=== PATIENT | male | born 1990 | race Caucasian/White ===

== ENCOUNTER 2021-09-18 10:20 | Outpatient (CLI) | payer OTHER ==
[2021-09-18 10:58] VITALS: BP 130/88
--- NOTE | 2021-09-18 10:58 | SLEEP CARE CONSULTATION ---
Information from patient questionnaire entered by Ann Mosley MA. I have reviewed and concur with the information entered by Ann Mosley MA. This document represents the service I personally performed and the decisions made by , Yancy Lopez ARNP. History of Present Illness Service Date and Time: 09/18/2021 1020 Reason for Visit: New patient (ONSET 12/1990, NO PRIORS,) Chief Complaint: reports: Unrefreshed sleep, Fatigue, Frequent awakenings at nig ht Date of Onset: 20 PLUS YEARS Usual bedtime: 10-11 PM Time it takes to fall asleep: 20 MINUTES Snores at night: No Observed to quit breathing while asleep: No Sleeps alone due to snoring: No Number of times waking at night: 3 - 10 Reasons for waking at night: reports: Bathroom Toss, Turn, or Twitch while sleeping: Yes Recalls having dreams: Yes Usually gets out of bed at: 0900 Feels refreshed in the morning: No (FEELS TIRED ALL DAY LONG, GETS ENERGY AND CLARITY AROUND 1800. ) Morning headache: No Sleepy or fatigued during the day: Yes Ever fallen asleep while driving: No Takes day naps: No Dreams during day naps: Yes Prior sleep studies: No Additional HPI information: I had the pleasure of seeing FOX WARE today regarding the possibility of him having a sleep disorder. His current complaints are fatigue, frequent night awakenings, unrefreshed sleep and nocturia. He states he feels tired all the time during the day from waking up throughout the night. He will wake up with urge to void several times a night. He states his father and uncle both have sleep apnea and are treated. The patient tells me that he normally goes to bed around 10 pm, and it takes him approximately 30 minutes to fall asleep. He has not been told that he snores loudly and irregularly at night. He has not been observed to stop breathing in his sleep. He can recall waking up on the average of 1 to multiple times during the night, he does not keep track. Most of the time he wakes up because of needing bathroom. He has not awakened for his own snoring, choking, and having to gasp for air. There is some tossing and turning in his sleep. Generally he can recall having dreams about 1 time a week. He usually wakes up at 0900 and does not feel refreshed. He usually does not have a morning headache. During the day he complains of feeling sleepy and fatigued. He has never fallen asleep while driving nor has any accident due to sleepiness. He usually does not take naps during the day. There is no somniloquy (sleep talking) or somnambulism (sleep walking). He reports having impaired concentration during the day. - Parasomnia Symptoms Ever been unable to move upon waking from sleep: Yes Walks in sleep: No Talks in sleep: No Ever acted out dreams in sleep: No Ever felt weak in the knees when startled or emotional: No Bothered by creepy, crawly, restless sensations in legs: Yes (when laying down at night) Problems with memory or concentration: No Subjective Initial [place] Sleepiness Scale score: 5 (2021) Past Medical History Past Medical History: reports: Other (nocturia) Social History The patient's occupation is a [employer]. Patient is Single and lives in . Have you smoked in the past 12 months: No Alcohol use: Yes Alcohol amount and frequency: 1-2 X MONTHLY Caffeine use: Yes Caffeine amount and frequency: 1 X BI WEEKLY Family History Family history of sleep disordered breathing: Yes Family Hx Sleep Apnea: Father: Snoring (UNCLE), Sleep apnea - Treated, Grandparent: Snoring, Sleep apnea - Untreated, Other: Snoring, Sleep apnea - Treated Allergies and Home Medications Known drug allergies: No Drug allergies reviewed: Yes (NKDA) Home medication list reviewed: Yes Allergy and home medication list: Myrbetriq for overactive bladder prescribed today, hasn't started yet. Review of Systems Weight loss over past 5 years: 10 LBS Cardiovascular: denies: high blood pressure Gastrointestinal: denies: heartburn Urinary: reports: frequency, other (NOCTURIA) Psychiatric: denies: Attention Deficit Hyperactivity, anxiety, depression, mood disorder Ear/Nose/Throat: reports: nasal congestion, wisdom teeth removed. denies: dry mouth/throat, injury to nose, tonsillectomy Endocrine: reports: increased urination Musculoskeletal: reports: back pain Immunologic: reports: sneezing, allergies to food or environment (allergies in winter, dust mites) Physical Exam Vital signs obtained and entered by: Saúl MOSLEY CMA TIO Blood Pressure: 130/88 (LEFT, PULSE 59, RESP 16,) Heart Rate: 62 O2 Saturation: 99 Height: 5 ft 9 in Weight: 170 lb (CLOTHES) Body Mass Index: 25.1 BMI Classification: Overweight Neck circumference: 14.5 (inches) Mouth and throat: narrow oropharynx Soft palate: long Hard palate: normal Uvula: normal Uvula visualization: 50% Mallampati Class II Tongue: normal in size Tonsils: small Neck: normal w/o lymphadenopathy or thyromegaly Heart: regular rate and rhythm Lungs: clear bilaterally Impression and Plan 1. Suspected Obstructive Sleep Apnea-Hypopnea Syndrome, as suggested by a history of frequent awakening during the night, unrefreshed sleep, cognitive impairment, and excessive daytime sleepiness. Narrow oropharynx and obesity are common predisposing factors for obstructive sleep apnea-hypopnea syndrome. I recommend proceeding to polysomnography to confirm the diagnosis and to assess severity. If the patient has significant sleep disordered breathing, a manual CPAP titration study will also be performed to find the optimal treatment pressure. I informed the patient of what the sleep studies involve and after some discussion, obtained agreement to proceed. The pathophysiology of obstructive sleep apnea-hypopnea syndrome was discussed with the patient and health risks of cardiovascular and cerebrovascular disease if not treated. Risks of drowsy driving discussed in detail and patient advised to avoid long distance driving and to gut puller at the first sign of drowsiness. Patient agreed to plan. * Schedule polysomnography/HST * Avoid long distance driving or driving when feeling sleepy. * Avoid alcohol, sedative and muscle relaxant around bedtime. * Maintain a healthy weight. * Review instructions provided by trained office staff on how to prepare for the sleep study. * Return for follow-up after sleep study completed. Counseling Topics: Weight control Visit Type: In Office Time Spent with Patient (minutes): 30 Provider Statement: I spent 100% of the Face to Face Visit with the patient with greater than 50% spent counseling the patient and coordination of care.
== END 2021-09-18 10:21 | disposition home or self-care (01) ==
LOC: SC 10:20
PROVIDERS: ATTEND Nurse Practitioner Family
DX: G47.8 Other sleep disorders (principal); R53.83 Other fatigue; R35.1 Nocturia; E66.3 Overweight; Z68.25 Body mass index [BMI] 25.0-25.9, adult
CPT/HCPCS: 99203; 99212

== ENCOUNTER 2021-10-01 08:27 | Outpatient (CLI) | payer OTHER | END 2021-10-01 08:28 | disposition home or self-care (01) | LOC: SC 08:27 | PROVIDERS: ATTEND Nurse Practitioner Family | DX: R09.02 Hypoxemia (principal); R53.83 Other fatigue; G47.8 Other sleep disorders; R35.1 Nocturia | CPT/HCPCS: 95806 ==

== ENCOUNTER 2021-10-11 14:05 | Outpatient (CLI) | payer OTHER ==
[2021-10-11 14:31] VITALS: BP 125/83
--- NOTE | 2021-10-11 14:31 | SLEEP CARE CONSULTATION ---
Information from patient questionnaire entered by Ann Mosley MA. I have reviewed and concur with the information entered by Ann Mosley MA. This document represents the service I personally performed and the decisions made by John rai Caren J, ARNP. History of Present Illness Service Date and Time: 10/11/2021 1405 Initial [place] Sleepiness Scale score: 5 (2021) Current [place] Sleepiness Scale score: 5 (09/2021) Additional HPI information: FOX WARE returns for follow up and results of the recently performed home sleep study. The patient was informed of the following findings: No significant sleep disordered breathing with an average AHI of 1.5 and trip oxygen saturation of 86%. I explained the pathophysiology behind obstructive sleep apnea. Patient does not have sleep apnea and was advised how weight gain could increase the risk of developing sleep apnea in the future. Patient has light snoring. Snoring can be reduced by weight loss. Weight loss is best achieved with diet consult. Patient instructed to contact PCP for referral. Snoring can also be treated with an oral appliance from a dentist. Advised to check insurance coverage. In addition, an ENT evaluation can be do to see if other treatment is indicated. Patient does not drink alcohol. Patient was cautioned about risks of drowsy driving until sleepiness symptoms resolve. Patient denies drowsy driving. Sleep Study - Results Type of Sleep Study: Home sleep study (F/U HOME STUDY) Prior sleep studies: No Polysomnography/Home Sleep Study results: Physician Impression: The quality of the study is good. The length of the study is adequate (> 240 minutes). Please also see the tabulated and graphic data. 1. No significant sleep disordered breathing, with an AHI of 1.5/hr and trip SaO2 of 86%. During the study, the patient had 15 apneas (15 obstructive, 0 central, 0 mixed) and 2 hypopneas. The longest episode lasted 31.5 seconds. The few respiratory events occurred independently of body position (supine AHI was 1.4 and non-supine, 1.88). 2. Hypoxemia (ICD-10 R09.02), minimal, with the lowest oxygen saturation of 86 % and 3.5 minutes with SaO2 under 90%. Baseline oxygen saturation was normal (Average oxygen saturation was 96%). Allergies and Home Medications Known drug allergies: No Drug allergies reviewed: Yes Home medication list reviewed: Yes (MYREBETRIQ (BLADDER )) Review of Systems Review of systems same as previous: Yes (no changes) Physical Exam Vital signs obtained and entered by: PASTORA BANG Blood Pressure: 125/83 (PULSE 61, RESP 14, LEFT, ) Heart Rate: 62 O2 Saturation: 97 (PAPER) Height: 5 ft 9 in Weight: 164 lb Body Mass Index: 24.2 BMI Classification: Healthy weight Impression and Plan 1. Snoring but no significant sleep disordered breathing. Patient advised that often weight loss will reduce snoring as well as apnea risk. An oral appliance can also be used for snoring. This would require a dental consultation. Patient cautioned not to use other online appliances as can cause bite issues. A list of accredited dentists in [facility] and one local dentist who makes oral appliances is available in office. Patient is advised to check if insurance will cover. An ENT consult can also be helpful to determine if any other treatment is an option. 2. Hypoxemia, minimal, with the lowest oxygen saturation of 86 % and 3.5 minutes with SaO2 under 90%. His baseline oxygen saturation was normal with an average oxygen saturation of 96%. No further evaluation needed at this time. * Attempt to lose weight * Avoid alcohol consumption near bedtime * The patient is cautioned about driving until sleepiness is completely resolved. * Return as needed for follow up. Counseling Topics: Weight control Visit Type: In Office Time Spent with Patient (minutes): 10 Provider Statement: I spent 100% of the Face to Face Visit with the patient with greater than 50% spent counseling the patient and coordination of care.
== END 2021-10-11 14:06 | disposition home or self-care (01) ==
LOC: SC 14:05
PROVIDERS: ATTEND Nurse Practitioner Family
DX: R06.83 Snoring (principal); R09.02 Hypoxemia
CPT/HCPCS: 99212